=== PATIENT | male | born 1960 | race Caucasian/White ===

== ENCOUNTER 2020-06-15 11:23 | Emergency (ER) | payer SELFPAY ==
[~2020-06-15] VITALS: Ht 182.9 cm; Wt 70.3 kg
[2020-06-15] MEDS ORDERED: SODIUM CHLORIDE 0.9% 1,000 ML IV ONE (11:45)
[2020-06-15 13:22] LABS: Basophils # (auto) 0 10 ^3/uL (0-0.2); Eosinophils # (auto) 0 10 ^3/uL (0-0.8); Eosinophils % (auto) 0.6 % (0.0-7.0); Lymphocytes # (auto) 0.8 10 ^3/uL (0.4-5.4); Monocytes # (auto) 0.3 10 ^3/uL (0-1.3); Neutrophils # (auto) 5.5 10 ^3/uL (1.6-8.6); White Blood Cell 6.7 10^3/uL (4.4-10.8)
[2020-06-15 13:24] LABS: Basophils % (auto) 0.5 % (0.0-2.0); Hematocrit 39.8 % (41.0-53.0); Hemoglobin 13.9 g/dL (13.5-17.5); Lymphocytes % (auto) 11.7 % (10.0-50.0); Mean Corpuscular Hemoglobin 41.8 pg (28.0-32.0); Mean Corpuscular Volume 119.3 fL (80.0-100.0); Neutrophils % (auto) 82.2 % (37.0-80.0); Platelet Count (auto) 239 10^3/uL (140-450); Red Blood Cells 3.34 10^6/uL (4.5-5.90); Red Cell Distribution Width 17.3 % (11.8-14.3)
[2020-06-15 13:36] LABS: Albumin 3.6 g/dL (3.4-5.0); Anion Gap 9 (5-15); Blood Urea Nitrogen 9 mg/dL (7-18); Calcium 8.9 mg/dL (8.5-10.1); Carbon Dioxide 29 mmol/L (21-32); Chloride 95 mmol/L (98-107); Glucose 95 mg/dL (74-106); Sodium 133 mmol/L (136-145)
[2020-06-15 13:41] LABS: Alanine Aminotransferase 9 U/L (16-61); Alkaline Phosphatase 180 U/L (45-117); Aspartate Aminotransferase 11 U/L (15-37); BUN/Creatinine Ratio 3.8; Bilirubin, Total 1.2 mg/dL (0.2-1.0); GFR African American 36 mL/min; GFR Non-African American 30 mL/min; Total Protein 7.5 g/dL (6.4-8.2)
[2020-06-15 13:51] VITALS: BP 154/122
[2020-06-15 13:54] LABS: Potassium 2.9 mmol/L (3.5-5.1)
[2020-06-15] MEDS ORDERED: POTASSIUM EFFERVESENT TAB 25 MEQ PO ONE (14:00)
== END 2020-06-15 14:10 | disposition short-term general hospital (02) ==
LOC: ER 11:23
DX: S06.5X9A Traumatic subdural hemorrhage with loss of consciousness of unspecified duration, initial encounter (principal); I10 Essential (primary) hypertension; X58.XXXA Exposure to other specified factors, initial encounter; Y93.89 Activity, other specified; Y92.89 Other specified places as the place of occurrence of the external cause; Y99.8 Other external cause status
CPT/HCPCS: 36415; 70450; 71045; 80053; 84484; 85025; 96360; 99285; J7030